=== PATIENT | male | born 1970 | race African-American/Black ===

== ENCOUNTER 2025-01-15 14:07 | Emergency (ER) | payer OTHER ==
[~2025-01-15] VITALS: Ht 177.8 cm; Wt 95.0 kg
[2025-01-15 14:12] VITALS: O2SAT 98
[2025-01-15] MEDS: ACETAMINOPHEN 325MG TABLET PO ONE (17:13)
[2025-01-15] MEDS ORDERED: TOPUD PO (18:11)
[2025-01-15] MEDS ORDERED: LIDO-53 TP (18:11)
[2025-01-15 18:19] VITALS: BP 129/80; PULSE 71; RESP 15; TEMP 37; O2SAT 98
== END 2025-01-15 18:21 | disposition home or self-care (01) ==
LOC: ER 14:07
DX: M54.50 Low back pain, unspecified (principal); E78.00 Pure hypercholesterolemia, unspecified; I10 Essential (primary) hypertension; V89.2XXA Person injured in unspecified motor-vehicle accident, traffic, initial encounter; Y93.89 Activity, other specified; Y92.89 Other specified places as the place of occurrence of the external cause; Y99.8 Other external cause status
CPT/HCPCS: 72100; 73630; 99284